=== PATIENT | female | born 1950 | race Caucasian/White ===

== ENCOUNTER → 2018-09-07 | Outpatient (CLI) | payer BC, MEDICARE ==
[~2018-09-07] MED LIST: ASPIRIN81 M2 PO; FIORICET 50-321 EACH PO; LEVOTHROID200 MCG PO; METOPROLOL SUCC25 M1 PO
== END ==
LOC: M.RAD 15:21
DX: Z12.31 Encounter for screening mammogram for malignant neoplasm of breast (principal); M85.59 Aneurysmal bone cyst, multiple sites; Z78.0 Asymptomatic menopausal state; Z01.419 Encounter for gynecological examination (general) (routine) without abnormal findings

== ENCOUNTER → 2018-09-15 | Outpatient (CLI) | payer BC, MEDICARE | LOC: M.ULTRA 14:30 | DX: I65.23 Occlusion and stenosis of bilateral carotid arteries (principal) ==

== ENCOUNTER → 2018-11-02 | Outpatient (CLI) | payer OTHER | LOC: M.CT 12:28 | DX: Z13.6 Encounter for screening for cardiovascular disorders (principal) ==